=== PATIENT | male | born 1990 | race Two or more races ===

== ENCOUNTER 2020-11-04 15:47 | Emergency (ER) | payer SELFPAY ==
[~2020-11-04] VITALS: Ht 180.3 cm; Wt 72.6 kg
--- NOTE | 2020-11-04 15:56 | NUR ---
Dr Desai at the bedside for MSE.
[2020-11-04] MEDS ORDERED: NAPR-1164 PO (16:08)
--- NOTE | 2020-11-04 16:43 | NUR ---
Patient discharged to home in stable condition. Written and verbal after care instructions given. Patient verbalizes understanding of instructions. Stressed follow up or return to ER for worsening s/s.
[2020-11-04 16:47] VITALS: BP 103/70
== END 2020-11-04 16:47 | disposition home or self-care (01) ==
LOC: ER 15:49
DX: G62.9 Polyneuropathy, unspecified (principal); Z87.891 Personal history of nicotine dependence
CPT/HCPCS: A4663